=== PATIENT | male | born 1990 | race Caucasian/White ===

== ENCOUNTER 2023-06-30 16:07 | Emergency (ER) | payer SELFPAY ==
[~2023-06-30] VITALS: Ht 175.3 cm; Wt 84.0 kg
[2023-06-30 16:10] VITALS: O2SAT 100
[2023-06-30] MEDS ORDERED: KETOROLAC 30MG/ML VIAL IV STA (16:16)
[2023-06-30] MEDS ORDERED: FAMOTIDINE 20MG/2ML VIAL IV STA (16:16)
[2023-06-30] MEDS ORDERED: ONDANSETRON HCL 4MG/2ML INJ IV STA (16:16)
[2023-06-30] MEDS ORDERED: MORPHINE SULFATE 4 MG/ML CPJ (NOT FOR IM USE) IV STA (16:16)
[2023-06-30] MEDS ORDERED: SODIUM CHLORIDE 0.9% 1,000 ML IV ONE (16:30)
[2023-06-30 17:17] LABS: BASOPHILS % 0.4 % (0.0-2.0); HEMATOCRIT. 44.5 % (42.0-52.0); HEMOGLOBIN. 15.3 g/dL (14.0-18.0); LYMPHOCYTES % 14.3 % (20.0-50.0); MEAN CORPUSCULAR HEMOGLOBIN 30.4 pg (28.0-32.0); MEAN CORPUSCULAR HGB CONC 34.4 g/dL (31.0-37.0); MEAN CORPUSCULAR VOLUME 88.3 fL (80.0-94.0); MEAN PLATELET VOLUME 7.6 fl (7.4-10.4); MONOCYTES % 6.7 % (2.0-8.0); NEUTROPHILS % 77.6 % (40.0-76.0); PLATELET 355 x1000/uL (130-400); RED BLOOD CELL COUNT 5.04 mill/uL (4.7-6.1); RED CELL DISTRIBUTION WIDTH 13.6 % (11.6-14.6); WHITE BLOOD COUNT 10.5 x1000/uL (4.5-11.0)
[2023-06-30 17:24] LABS: CHLORIDE 108 mEq/L (98-107); INDEX HEMOLYSI 1 (1-3); INDEX ICTERIC 1 (1-4); INDEX LIPEMIC 1 (1-3); POTASSIUM 3.9 mEq/L (3.5-5.1); PROTHROMBIN TIME 11.1 sec (9.6-11.0); SODIUM 138 mEq/L (136-145)
[2023-06-30 17:33] LABS: ALANINE AMINOTRANSFERASE 173 IU/L (13-61); ALBUMIN 4.3 g/dL (3.4-5.0); ASPARTATE AMINOTRANSFERASE 65 IU/L (15-37); BILIRUBIN TOTAL 0.6 mg/dL (0.1-1.0); CARBON DIOXIDE 28 mEq/L (21-32); ETHANOL BLOOD < 10 mg/dL (<10); GLUCOSE 119 mg/dL (70-105); PROTEIN TOTAL 8.3 g/dL (6.0-8.3); UREA NITROGEN BLOOD 9 mg/dL (7-21)
[2023-06-30] MEDS ORDERED: FAMOTIDINE 20MG/2ML VIAL IV NR ×2 (20:00)
[2023-06-30] MEDS ORDERED: MORPHINE SULFATE 4 MG/ML CPJ (NOT FOR IM USE) IV NR (20:00)
[2023-06-30] MEDS ORDERED: KETOROLAC 30MG/ML VIAL IV NR (20:00)
[2023-06-30] MEDS ORDERED: ONDANSETRON HCL 4MG/2ML INJ IV NR (20:15)
[2023-06-30 22:48] VITALS: BP 124/68; PULSE 80; RESP 20; TEMP 98.2
== END 2023-06-30 22:51 | disposition home or self-care (01) ==
LOC: ER 16:07
DX: K76.0 Fatty (change of) liver, not elsewhere classified (principal); K29.20 Alcoholic gastritis without bleeding; K80.20 Calculus of gallbladder without cholecystitis without obstruction; F10.10 Alcohol abuse, uncomplicated; Z88.0 Allergy status to penicillin; Y90.9 Presence of alcohol in blood, level not specified
CPT/HCPCS: 80053; 80320; 83690; 85025; 85610; 36415; 74176; 96361; 96374; 96375; 99285; J3490; J1885; J2405; J2270; J7030; Z7610 ×2; G0480